=== PATIENT | female | born 1975 | race Two or more races ===

== ENCOUNTER 2020-07-01 00:25 | Emergency (ER) | payer MEDICAID ==
[~2020-07-01] VITALS: Ht 157.5 cm; Wt 63.0 kg
[2020-07-01 01:24] LABS: Basophils # (auto) 0 10 ^3/uL (0-0.2); Basophils % (auto) 0.6 % (0.0-2.0); Eosinophils # (auto) 0.1 10 ^3/uL (0-0.8); Eosinophils % (auto) 1.6 % (0.0-7.0); Hematocrit 39.4 % (36.0-46.0); Hemoglobin 13.4 g/dL (12.2-16.2); Lymphocytes # (auto) 2.7 10 ^3/uL (0.4-5.4); Lymphocytes % (auto) 41.5 % (10.0-50.0); Mean Corpuscular Hemoglobin 31.2 pg (28.0-32.0); Mean Corpuscular Hgb Conc. 34.1 g/dL (32.0-36.0); Mean Corpuscular Volume 91.6 fL (80.0-100.0); Monocytes # (auto) 0.6 10 ^3/uL (0-1.3); Monocytes % (auto) 9.3 % (0.0-12.0); Neutrophils # (auto) 3.1 10 ^3/uL (1.6-8.6); Nucleated Red Blood Cells % 0.1 %; Platelet Count (auto) 232 10^3/uL (140-450); Red Cell Distribution Width 12.8 % (11.8-14.3); White Blood Cell 6.5 10^3/uL (4.4-10.8)
[2020-07-01 01:42] LABS: INR 0.92 (0.9-1.15)
[2020-07-01 01:44] LABS: Alanine Aminotransferase 21 U/L (13-56); Albumin 3.7 g/dL (3.4-5.0); Anion Gap 9 (5-15); BUN/Creatinine Ratio 20.4; Blood Urea Nitrogen 23 mg/dL (7-18); Calcium 8.6 mg/dL (8.5-10.1); Carbon Dioxide 25 mmol/L (21-32); Chloride 110 mmol/L (98-107); GFR African American 67 mL/min; GFR Non-African American 56 mL/min; Glucose 110 mg/dL (74-106); Magnesium 2.4 mg/dL (1.6-2.6); Sodium 144 mmol/L (136-145)
[2020-07-01 01:53] LABS: Alkaline Phosphatase 71 U/L (45-117); Aspartate Aminotransferase 13 U/L (15-37); Bilirubin, Total 0.2 mg/dL (0.2-1.0); Total Protein 7.5 g/dL (6.4-8.2)
[2020-07-01] MEDS ORDERED: SODIUM CHLORIDE 0.9% 1,000 ML IV ONE (02:15)
[2020-07-01 03:44] VITALS: BP 120/85
== END 2020-07-01 04:50 | disposition home or self-care (01) ==
LOC: ER 00:29
DX: R07.89 Other chest pain (principal); R53.1 Weakness; R42 Dizziness and giddiness; M79.602 Pain in left arm; R00.2 Palpitations
CPT/HCPCS: 36415; 71045; 80053; 83735; 83880; 84484; 85025; 85379; 85610; 93005; 96360; 99285; J7030

== ENCOUNTER 2025-03-15 13:55 | Emergency (ER) | payer MEDICAID ==
[~2025-03-15] VITALS: Ht 157.5 cm; Wt 94.1 kg
[2025-03-15 15:16] LABS: Urine Protein, UAD Negative (Negative)
[2025-03-15 15:21] LABS: Hematocrit 44.6 % (36.0-46.0); Hemoglobin 14.8 g/dL (12.2-16.2); Mean Corpuscular Hemoglobin 30.2 pg (28.0-32.0); Mean Corpuscular Volume 90.9 fL (80.0-100.0); Nucleated Red Blood Cells % 0.1 %
[2025-03-15] MEDS: KETOROLAC TROMETH 60MG/2ML VIAL IM ONE (15:26)
[2025-03-15] MEDS: ONDANSETRON ODT 4 MG TAB PO ONE (15:27)
--- NOTE | 2025-03-15 15:31 | ED.PDOC ---
General HPI Comments 49-year-old female presents here with 1 week of right lower flank/pelvic pain. She points to her right lower abdomen and right lower back. Denies any injury. She states she has been managing at home with the pain has become severe. Reports positive nausea no vomiting. She states she also had diarrhea in the symptoms began when her diarrhea began. She is currently postmenopausal. She does have a known history of ovarian cyst. Denies any recent cough cold runny nose fever or chills. She states previously the pain came and went but now the pain is constant. Describes it as sharp pain. She is unable to get comfortable in any position. She states sitting is worse. Standing is the most comfortable position. Denies dysuria or burning with urination. Chief Complaint: Pelvic Pain Time Seen by MD: 14:05 Reviewed notes: Nurses Notes, Medications, Allergies Allergies: Coded Allergies: NO KNOWN ALLERGIES (Unverified , 07/01/20) Information Source: Patient, Relative (Child) Mode of Arrival: Ambulatory Severity: Moderate Timing: Weeks (1) Duration: Since onset Onset: Spontaneous Past Medical History PAST MEDICAL HISTORY: Denies Surgical History: Denies all surgeries IT PROJECT COORDINATOR History: Denies all IT PROJECT COORDINATOR Hx Family History Family History: Reviewed,noncontributory to illness Social History Smoker: Non-Smoker Alcohol: Occasionally Drugs: Denies Drug Use Lives In: Home Constitutional: denies: chills, diaphoresis, fatigue, fever, malaise, sweats, weakness, others EENTM: denies: blurred vision, double vision, ear bleeding, ear discharge, ear drainage, ear pain, ear ringing, eye pain, eye redness, hearing loss, mouth pain, mouth swelling, nasal discharge, nose bleeding, nose congestion, nose pain, photophobia, tearing, throat pain, throat swelling, voice changes, others Respiratory: denies: cough, hemoptysis, orthopnea, SOB at rest, shortness of breath, SOB with excertion, stridor, wheezing, others Cardiovascular: denies: chest pain, dizzy spells, diaphoresis, Dyspnea on exertion, edema, irregular heart beat, left arm pain, lightheadedness, palpitations, PND, syncope, others Gastrointestinal: denies: abdomen distended, abdominal pain, blood streaked bowels, constipated, diarrhea, dysphagia, difficulty swallowing, hematemesis, melena, nausea, poor appetite, poor fluid intake, rectal bleeding, rectal pain, vomiting, others Genitourinary: denies: abnormal vagina bleeding, burning, dyspareunia, dysuria, flank pain, frequency, hematuria, incontinence, pain, , vagina discharge, urgency, others Neurological: denies: dizziness, fainting, headache, left sided numbness, left sided weakness, numbness, paresthesia, pre-existing deficit, right sided num bness, right sided weakness, seizure, speech problems, tingling, tremors, weakness, others Musculoskeletal: denies: back pain, gout, joint pain, joint swelling, muscle pain, muscle stiffness, neck pain, others Integumetry: denies: bruises, change in color, change in hair/nails, dryness, laceration, lesions, lumps, rash, wounds, others Allergic/Immunocompromised: denies: Difficulty Healing, Frequent Infections, Hives, Itching, others Hematologic/Lymphatic: denies: anemia, blood clots, easy bleeding, easy bruising, swollen glands, others Endocrine: denies: excessive hunger, excessive sweating, excessive thirst, excessive urination, flushing, intolerance to cold, intolerance to heat, unexplained weight gain, unexplained weight loss, others Psychiatric: denies: anxiety, bipolar disorder, depression, hopeless, panic disorder, schizophrenia, sleepless, suicidal, others All Other Systems: Reviewed and Negative Physical Exam General Appearance: Severe Distress, Other (Patient pacing and pain) HEENT: Normal ENT Inspection, Pharynx Normal, TMs Normal Neck: Full Range of Motion, Non-Tender, Normal, Normal Inspection Respiratory: Chest Non-Tender, Lungs Clear, No Accessory Muscle Use, No Respiratory Distress, Normal Breath Sounds Cardiovascular: No Edema, No JVD, Normal Peripheral Pulses, Regular Rate/Rhythm Breast Exam: Deferred Gastrointestinal: Other (Left low back/CVA tenderness to palpation. Epigastric tenderness to palpation) Genitalia: Deferred Pelvic: Deferred Rectal: Deferred Extremities: No calf tenderness, Normal capillary refill, Normal inspection, Normal range of motion, Non-tender, No pedal edema Musculoskeletal : Apperance: Normal Neurologic: Alert, No Motor Deficits, Normal Affect, Normal Mood, No Sensory Deficits Cerebellar Function: Normal Reflexes: Normal Skin: Dry, Normal Color, Warm Lymphatic: No Adenopathy Was a procedure done? Was a procedure done?: No Differential Diagnosis Kidney stone (Female): Pyelonephritis, Urinary obstruction, Urolithiasis Kidney stone (Male): N/A Penile/Scrotal: N/A Urinary Problem (Female): Urolithiasis Other Differential Diagnosis Ovarian torsion, diarrhea or cramps, pancreatitis, cholelithiasis, pyelonephritis, UTI, nephrolithiasis X-Ray, Labs, Meds, VS Vital Signs Date Time Temp Pulse Resp B/P (MAP) Pulse Ox O2 Delivery O2 Flow Rate FiO2 03/15/25 16:48 97.9 79 16 147/110 (122) 98 97.9 03/15/25 13:56 97.1 87 18 165/100 98 97.1 Lab Test 03/15/25 15:13 03/15/25 14:14 Range/Units White Blood Count 7.0 4.4-10.8 10^3/uL Red Blood Count 4.91 4.0-5.20 10^6/uL Hemoglobin 14.8 12.2-16.2 g/dL Hematocrit 44.6 36.0-46.0 % Mean Corpuscular Volume 90.9 80.0-100.0 fL Mean Corpuscular Hemoglobin 30.2 28.0-32.0 pg Mean Corpuscular Hemoglobin Concent 33.3 32.0-36.0 g/dL Red Cell Distribution Width 12.7 11.8-14.3 % Platelet Count 289 140-450 10^3/uL Mean Platelet Volume 7.7 6.9-10.8 fL Neutrophils (%) (Auto) 51.1 37.0-80.0 % Lymphocytes (%) (Auto) 39.4 10.0-50.0 % Monocytes (%) (Auto) 7.6 0.0-12.0 % Eosinophils (%) (Auto) 1.3 0.0-7.0 % Basophils (%) (Auto) 0.6 0.0-2.0 % Neutrophils # (Auto) 3.6 1.6-8.6 10 ^3/uL Lymphocytes # (Auto) 2.8 0.4-5.4 10 ^3/uL Monocytes # (Auto) 0.5 0-1.3 10 ^3/uL Eosinophils # (Auto) 0.1 0-0.8 10 ^3/uL Basophils # (Auto) 0 0-0.2 10 ^3/uL Nucleated Red Blood Cells 0.1 % Sodium Level 144 136-145 mmol/L Potassium Level 4.0 3.5-5.1 mmol/L Chloride Level 105 98-107 mmol/L Carbon Dioxide Level 29 20-31 mmol/L Anion Gap 10 5-15 Blood Urea Nitrogen 15 9-23 mg/dL Creatinine 0.89 0.550-1.02 mg/dL Glomerular Filtration Rate Calc 79 >90 mL/min BUN/Creatinine Ratio 16.9 10.0-20.0 Serum Glucose 95 74-106 mg/dL Calcium Level 10.3 8.7-10.4 mg/dL Total Bilirubin 0.6 0.2-1.0 mg/dL Aspartate Amino Transferase (AST) 31 13-40 U/L Alanine Aminotransferase (ALT) 42 H 7-40 U/L Alkaline Phosphatase 104 46-116 U/L Total Protein 8.3 H 5.7-8.2 g/dL Albumin 5.0 H 3.2-4.8 g/dL Urine Color Light-yellow Yellow Urine Clarity Clear Clear Urine pH 6.0 5.0-9.0 Urine Specific Elfrida 1.015 1.001-1.035 Urine Protein Negative Negative Urine Ketones Negative Negative Urine Blood Negative Negative /uL Urine Nitrite Negative Negative Urine Bilirubin Negative Negative Urine Urobilinogen Normal Negative mg/dL Urine Leukocyte Esterase Negative Negative /uL Urine RBC 1 0 - 4 /hpf Urine Microscopic WBC < 1 0-5 /HPF Urine Squamous Epithelial Cells Few <5 /hpf Urine Bacteria None seen None Seen /hpf Urine Glucose Normal Normal mg/dL Urine Test Negative Negative Current Medications Medications (Trade) Dose Ordered Sig/Raquel Route Start Time Stop Time Status Last Admin Ketorolac Tromethamine (Toradol Injection) 60 mg ONCE ONCE IM 03/15/25 15:15 03/15/25 15:18 DC 03/15/25 15:26 Ondansetron HCl (Zofran Po) 4 mg ONCE ONCE PO 03/15/25 15:15 03/15/25 15:18 DC 03/15/25 15:27 Hyoscyamine (Hyoscyamine ORAL DISSOLVING TAB) 0.125 mg ONCE ONCE PO 03/15/25 17:00 03/15/25 17:01 DC 03/15/25 17:35 49-year-old female presents here with constant pain to the right lower abdomen/right flank she is nontender on my examination. Low suspicion for appendicitis however she is writhing in pain. Considered possible ovarian torsion, nephrolithiasis. At this time I have ordered a CBC CMP urinalysis, pelvic ultrasound as well as a CT abdomen pelvis. I have written her for Toradol IM as well as Zofran. CBC CMP and urinalysis have returned with a normal limits. Ultrasound of the pelvis has been done with no evidence of torsion to the right ovary. Left ovary not visualized but that is not the area of her pain. CT abdomen pelvis has been done with no evidence of acute pathology. Patient has no WBC count. Patient was given Toradol with no relief in her pain. She would then was given hyoscyamine as I suspected possible diarrhea or cramps causing her pain. She states on re-evaluation at 6:05 p.m. that she is feeling much better. I have discharged her home with the same. Advised her to follow up with the PCP in 2-3 days and return to the ER if symptoms worsen or persist. I have given her a co py of her CT results and ultrasound results. X-Ray, Labs, Meds, VS Comment [place] [address] Ph: [phone] DIAGNOSTIC IMAGING Diagnostic Imaging Report : [id number] Signed PATIENT: MAIRA FREIRE ACCT: [id number] UNIT: [id number] : 1975 LOC: ER ROOM / BED: / AGE / SEX: 49 / F ADM STATUS: REG ER SERVICE [facility] ORDERING PHYSICIAN: SUHAIL HALE MD PROCEDURE(s): ABPL - CT AB PEL WO CON-NO ORAL OR IV REASON: Rule out nephrolithiasis,, colitis ORDER NUMBER(s): [id number], ACCESSION NUMBER(s): [id number] CLINICAL INFORMATION: Rule out nephrolithiasis. Colitis. No other clinical information provided. TECHNIQUE: Axial CT images of the abdomen and pelvis were obtained without IV contrast. Coronal and sagittal reformatted images were obtained, reviewed, and stored. Evaluation of the parenchymal organs is limited without IV contrast. Evaluation of the bowel and mesentery is limited without oral contrast. All CT scans at this medical facility are performed using dose modulation techniques as appropriate to a performed exam including the following: Automated exposure control was utilized; adjustment of the MA and/or KV according to patient size; and use of iterative reconstruction technique. CTDIvol = 7.59 mGy DLP = 396.28 mGy-cm COMPARISON: None FINDINGS: Lung bases: Lung bases are clear. Liver: Grossly unremarkable in its noncontrast enhanced appearance. No abnormal density or focal lesion identified. Biliary: Cholecystectomy. Spleen: Unremarkable. Pancreas: Grossly unremarkable in its noncontrast enhanced appearance. Adrenal glands: Unremarkable. No mass. Kidneys: No hydronephrosis. No renal or ureteral calculi. Aorta/Vascular: No aneurysm or significant calcification. Lymph nodes: No mass or lymphadenopathy. Bowel/mesentery: No small bowel obstruction. No free air or free fluid. Appendix is visualized and appears unremarkable. Pelvic organs: Grossly unremarkable. Bladder: Unremarkable. No mass. Abdominal wall: Very small fat containing umbilical hernia. Bones: No acute fracture or suspicious intraosseous lesion. IMPRESSION: 1. No acute abnormality identified in the abdomen or pelvis. 2. Nonacute findings as described above. ATED BY: PRABHJOT CHICAS DO DICTATED DATE/TIME: 03/15/251635 SIGNED BY: PRABHJOT CHICAS DO SIGNED DATE/TIME: 03/15/251635 CC: [place] [address] Ph: [phone] DIAGNOSTIC IMAGING Diagnostic Imaging Report : [id number] Signed PATIENT: MAIRA FREIRE ACCT: [id number] UNIT: [id number] : 1975 LOC: ER ROOM / BED: / AGE / SEX: 49 / F ADM STATUS: REG ER SERVICE 1412 ORDERING PHYSICIAN: SUHAIL HALE MD PROCEDURE(s): PELUS - PELVIC REASON: ro torsion ORDER NUMBER(s): [id number], ACCESSION NUMBER(s): [id number] INDICATION: ro torsion TECHNIQUE: Multiple real-time grayscale transabdominal sonographic images along with color and duplex Doppler of the uterus and ovaries were obtained. COMPARISON: None FINDINGS: The uterus measures 6.6 x 2.7 x 4.3 cm. The uterus is heterogeneous in echotexture. The endometrial stripe measures 0.3 cm. There is fluid and calcification in the endometrium. The right ovary measures 1.4 x 1.1 x 1.5 cm. The left ovary is not visualized. No adnexal mass. Subsequent color and duplex Doppler interrogation of the right ovary shows vascular flow. No free fluid in the cul-de-sac. IMPRESSION: 1. Heterogeneous uterus with fluid and calcification in the endometrium. 2. Nonvisualized left ovary. No right ovarian torsion. ATED BY: ROSE HINOJOSA MD DICTATED DATE/TIME: 03/15/251538 SIGNED BY: ROSE HINOJOSA MD SIGNED DATE/TIME: 03/15/251538 CC: Time of 1ST Reevaluation: 15:30 Reevaluation 1ST: Unchanged Time of 2ND Reevaluation: 18:04 Reevaluation 2ND: Improved Patient Education/Counseling: Diagnosis, Treatment, Prognosis Family Education/Counseling: No Family Present SEPSIS Sepsis Screen Date sepsis recognized/suspect: Mar 15, 2025 Time Sepsis recognized/suspect: 1357 Recent Procedure: No On Antibiotic Therapy: No Respiratory Rate >20: No Heart Rate >90: No Temp<36 C (96.8 F) or >38.3 C: No SBP <90 or MAP <65 mmHG: No New Acute Mental Status Change: No Is the patient on CPAP, BIPAP,: No Physician Orders Pelvic (03/15/25 14:12) Ct Ab Pel Wo Con-No Oral Or Iv (03/15/25 15:13) Ondansetron Po (Zofran Po) (03/15/25 15:15) Transvaginal Us Non Ob (03/15/25 15:18) Vital Signs Date Time Temp Pulse Resp B/P (MAP) Pulse Ox O2 Delivery O2 Flow Rate FiO2 03/15/25 16:48 97.9 79 16 147/110 (122) 98 97.9 03/15/25 13:56 97.1 87 18 165/100 98 97.1 Laboratory Tests Test 03/15/25 15:13 White Blood Count 7.0 10^3/uL (4.4-10.8) Medications Medications Dose Ordered Sig/Raquel Route Start Time Stop Time Status Last Admin Dose Admin Hyoscyamine 0.125 mg ONCE ONCE PO 03/15/25 17:00 03/15/25 17:01 DC 03/15/25 17:35 Ketorolac Tromethamine 60 mg ONCE ONCE IM 03/15/25 15:15 03/15/25 15:18 DC 03/15/25 15:26 Ondansetron HCl 4 mg ONCE ONCE PO 03/15/25 15:15 03/15/25 15:18 DC 03/15/25 15:27 Departure 1 Departure Time of Disposition: 18:02 Impression: Primary Impression: Abdominal cramps Additional Impression: Diarrhea Qualified Codes: R19.7 - Diarrhea, unspecified Disposition: 01 HOME / SELF CARE / HOMELESS Condition: Stable Additional Instructions: Follow up with the primary care physician in 2-3 days. Return to the ER if symptoms worsen or persist. [address] [place] [address] Ph: [phone] DIAGNOSTIC IMAGING Diagnostic Imaging Report : [id number] Signed PATIENT: MAIRA FREIRE ACCT: [id number] UNIT: [id number] : 1975 LOC: ER ROOM / BED: / AGE / SEX: 49 / F ADM STATUS: REG ER SERVICE 1513 ORDERING PHYSICIAN: SUHAIL HALE MD PROCEDURE(s): ABPL - CT AB PEL WO CON-NO ORAL OR IV REASON: Rule out nephrolithiasis,, colitis ORDER NUMBER(s): [id number], ACCESSION NUMBER(s): [id number] CLINICAL INFORMATION: Rule out nephrolithiasis. Colitis. No other clinical information provided. TECHNIQUE: Axial CT images of the abdomen and pelvis were obtained without IV contrast. Coronal and sagittal reformatted images were obtained, reviewed, and stored. Evaluation of the parenchymal organs is limited without IV contrast. Evaluation of the bowel and mesentery is limited without oral contrast. All CT scans at this medical facility are performed using dose modulation techniques as appropriate to a performed exam including the following: Automated exposure control was utilized; adjustment of the MA and/or KV according to patient size; and use of iterative reconstruction technique. CTDIvol = 7.59 mGy DLP = 396.28 mGy-cm COMPARISON: None FINDINGS: Lung bases: Lung bases are clear. Liver: Grossly unremarkable in its noncontrast enhanced appearance. No abnormal density or focal lesion identified. Biliary: Cholecystectomy. Spleen: Unremarkable. Pancreas: Grossly unremarkable in its noncontrast enhanced appearance. Adrenal glands: Unremarkable. No mass. Kidneys: No hydronephrosis. No renal or ureteral calculi. Aorta/Vascular: No aneurysm or significant calcification. Lymph nodes: No mass or lymphadenopathy. Bowel/mesentery: No small bowel obstruction. No free air or free fluid. Appendix is visualized and appears unremarkable. Pelvic organs: Grossly unremarkable. Bladder: Unremarkable. No mass. Abdominal wall: Very small fat containing umbilical hernia. Bones: No acute fracture or suspicious intraosseous lesion. IMPRESSION: 1. No acute abnormality identified in the abdomen or pelvis. 2. Nonacute findings as described above. ATED BY: PRABHJOT CHICAS DO DICTATED DATE/TIME: 03/15/[address] [place] [address] Ph: [phone] DIAGNOSTIC IMAGING Diagnostic Imaging Report : [id number] Signed PATIENT: MAIRA FREIRE ACCT: [id number] UNIT: [id number] : 1975 LOC: ER ROOM / BED: / AGE / SEX: 49 / F ADM STATUS: REG ER SERVICE 1412 ORDERING PHYSICIAN: SUHAIL HALE MD PROCEDURE(s): PELUS - PELVIC REASON: ro torsion ORDER NUMBER(s): [id number], ACCESSION NUMBER(s): [id number] INDICATION: ro torsion TECHNIQUE: Multiple real-time grayscale transabdominal sonographic images along with color and duplex Doppler of the uterus and ovaries were obtained. COMPARISON: None FINDINGS: The uterus measures 6.6 x 2.7 x 4.3 cm. The uterus is heterogeneous in echotexture. The endometrial stripe measures 0.3 cm. There is fluid and calcification in the endometrium. The right ovary measures 1.4 x 1.1 x 1.5 cm. The left ovary is not visualized. No adnexal mass. Subsequent color and duplex Doppler interrogation of the right ovary shows vascular flow. No free fluid in the cul-de-sac. IMPRESSION: 1. Heterogeneous uterus with fluid and calcification in the endometrium. 2. Nonvisualized left ovary. No right ovarian torsion. ATED BY: ROSE HINOJOSA MD DICTATED DATE/TIME: 03/15/25 1539 SIGNED BY: ROSE HINOJOSA MD SIGNED DATE/TIME: 03/15/25 153 CC: SIGNED BY: PRABHJOT CHICAS DO SIGNED DATE/TIME: 03/15/25 1636 CC: e-Prescriptions Hyoscyamine Sulfate (Hyoscyamine Sulfate) 0.125 Mg Sub 0.125 MG SL Q4HPRN PRN, #14 TAB Prov: SUHAIL HALE MD 03/15/25 Discharged With: Self, Relative (Sibling) Critical Care Note Critical Care Time?: No Stability Stability form required: No Heart Score Heart Score: Heart Score Response (Comments) Value History N/A 0 EKG N/A 0 Age N/A 0 Risk Factors N/A 0 Troponin N/A 0 Total 0 I personally scribed for SUHAIL HALE MD ([email or web address]) on 03/15/25 at 16:51. Electronically submitted by Leyda Nino ([facility]). I personally scribed for SUHAIL HALE MD ([email or web address]) on 03/15/25 at 16:51. Electronically submitted by Leyda Nino ([facility]). I personally scribed for SUHAIL HALE MD ([email or web address]) on 03/15/25 at 16:52. Electronically submitted by Leyda Nino ([facility]). SUHAIL HALE MD Mar 15, 2025 15:31
[2025-03-15 15:37] LABS: Alkaline Phosphatase 104 U/L (46-116); Calcium 10.3 mg/dL (8.7-10.4); Carbon Dioxide 29 mmol/L (20-31); Chloride 105 mmol/L (98-107); Glucose 95 mg/dL (74-106); Potassium 4.0 mmol/L (3.5-5.1)
[2025-03-15 15:38] LABS: Anion Gap 10 (5-15); BUN/Creatinine Ratio 16.9 (10.0-20.0); Bilirubin, Total 0.6 mg/dL (0.2-1.0); Blood Urea Nitrogen 15 mg/dL (9-23); Sodium 144 mmol/L (136-145)
[2025-03-15 15:39] LABS: Alanine Aminotransferase 42 U/L (7-40); Albumin 5.0 g/dL (3.2-4.8); Total Protein 8.3 g/dL (5.7-8.2)
--- NOTE | 2025-03-15 15:42 | DVH ---
INDICATION: ro torsion TECHNIQUE: Multiple real-time grayscale transabdominal sonographic images along with color and duplex Doppler of the uterus and ovaries were obtained. COMPARISON: None FINDINGS: The uterus measures 6.6 x 2.7 x 4.3 cm. The uterus is heterogeneous in echotexture. The endometrial stripe measures 0.3 cm. There is fluid and calcification in the endometrium. The right ovary measures 1.4 x 1.1 x 1.5 cm. The left ovary is not visualized. No adnexal mass. Subsequent color and duplex Doppler interrogation of the right ovary shows vascular flow. No free fluid in the cul-de-sac. IMPRESSION: 1. Heterogeneous uterus with fluid and calcification in the endometrium. 2. Nonvisualized left ovary. No right ovarian torsion.
--- NOTE | 2025-03-15 16:38 | DVH ---
CLINICAL INFORMATION: Rule out nephrolithiasis. Colitis. No other clinical information provided. TECHNIQUE: Axial CT images of the abdomen and pelvis were obtained without IV contrast. Coronal and sagittal reformatted images were obtained, reviewed, and stored. Evaluation of the parenchymal organs is limited without IV contrast. Evaluation of the bowel and mesentery is limited without oral contrast. All CT scans at this medical facility are performed using dose modulation techniques as appropriate to a performed exam including the following: Automated exposure control was utilized; adjustment of the MA and/or KV according to patient size; and use of iterative reconstruction technique. CTDIvol = 7.59 mGy DLP = 396.28 mGy-cm COMPARISON: None FINDINGS: Lung bases: Lung bases are clear. Liver: Grossly unremarkable in its noncontrast enhanced appearance. No abnormal density or focal lesion identified. Biliary: Cholecystectomy. Spleen: Unremarkable. Pancreas: Grossly unremarkable in its noncontrast enhanced appearance. Adrenal glands: Unremarkable. No mass. Kidneys: No hydronephrosis. No renal or ureteral calculi. Aorta/Vascular: No aneurysm or significant calcification. Lymph nodes: No mass or lymphadenopathy. Bowel/mesentery: No small bowel obstruction. No free air or free fluid. Appendix is visualized and appears unremarkable. Pelvic organs: Grossly unremarkable. Bladder: Unremarkable. No mass. Abdominal wall: Very small fat containing umbilical hernia. Bones: No acute fracture or suspicious intraosseous lesion. IMPRESSION: 1. No acute abnormality identified in the abdomen or pelvis. 2. Nonacute findings as described above.
[2025-03-15] MEDS: HYOSCYAMINE SULF 0.125 MG ODT TAB PO ONE (17:35)
[2025-03-15] MEDS ORDERED: HYOS0.1291 SL (18:04)
[2025-03-15 20:32] VITALS: BP 140/83; PULSE 69; RESP 16; TEMP 98; O2SAT 98
== END 2025-03-16 00:45 | disposition home or self-care (01) ==
LOC: ER 13:55
DX: R10.20 Pelvic and perineal pain unspecified side (principal); R19.7 Diarrhea, unspecified; Z79.899 Other long term (current) drug therapy
CPT/HCPCS: 36415; 74176; 76830; 76856; 80053; 81001; 81025; 85025; 96372; 99285; J1885; Q0162